=== PATIENT | male | born 2000 | race Caucasian/White ===

== ENCOUNTER 2023-10-01 00:23 | Emergency (ER) | payer OTHER, SELFPAY ==
[2023-10-01 00:40] VITALS: BP 141/95; PULSE 100; RESP 20; TEMP 36.9; O2SAT 100; BMI 29.0
--- NOTE | 2023-10-01 01:05 | ED_ITS ---
HPI - Skin/Abscess/Foreign Bdy General Chief complaint: Skin/Abscess/Foreign Body Stated complaint: rash on skin Time Seen by Provider: 10/01/23 01:05 Source: patient Mode of arrival: Ambulatory Limitations: no limitations History of Present Illness HPI narrative: Patient is an otherwise healthy 23-year-old male with a history of eczema who is here for evaluation of a rash on his face and upper chest and arms and hands. No rash in his mouth. No rash on the palms of his hand. No rash in his genitals. He states that he has been ?asleep for 3 days? who states he got up this morning and looked in the mirror noticed the rash. He does not remember seeing and over the past couple days. No recent travel. No recent antibiotics. Has not seen a [employer] in quite some time. Has not done anything for the symptoms prior to arrival. Related Data Previous Rx's Medication Instructions Recorded prednisone 20 mg tablet See Rx Instructions .Route 10/01/23 .COMPLEX #18 tabs Allergies Allergy/AdvReac Type Severity Reaction Status Date / Time No Known Drug Allergies Allergy Verified 10/01/23 01:12 Review of Systems Constitutional Constitutional: Reports system reviewed and no additional complaints, except as documented ENT Ears, Nose, Mouth, and Throat: Reports system reviewed and no additional complaints, except as documented Cardiovascular Cardiovascular: Reports system reviewed and no additional complaints, except as documented Respiratory Respiratory: Reports system reviewed and no additional complaints, except as documented Integumentary/Breasts Skin/Breast: Reports system reviewed and no additional complaints, except as documented Patient History Social History Smoking Status: Never smoker Smoking Status: Never smoker alcohol intake frequency: 0-2 drinks per day Alcohol type: beer Substance Use Type: does not use Exam Initial Vital Signs Initial Vital Signs: Vital Signs Temperature 98.5 F 10/01/23 00:40 Pulse Rate 100 H 10/01/23 00:40 Respiratory Rate 20 10/01/23 00:40 Blood Pressure 141/95 H 10/01/23 00:40 Pulse Oximetry 100 10/01/23 00:40 Oxygen Delivery Method Room Air 10/01/23 00:40 Const General: cooperative, comfortable and No ill appearing HENMT Mouth: oral mucosae normal Resp Effort & Inspection: normal respiratory effort Cardio Rate: regular rate Skin Other: Patient with dry skin. Has innumerable lesions on his upper arms and forehead and somewhat his back and upper chest. No vesicles. No surrounding erythema. Some are crusting over. Course Orders Ordered: Discontinued Medications Prednisone (Prednisone 20 Mg Tablet) 40 mg PO NOW ONE Stop: 10/01/23 01:07 Last Admin: 10/01/23 01:11 Dose: 40 mg Documented By: MIKHAIL Vital Signs Vital signs: Vital Signs - 8 hr 10/01/23 00:40 Temperature 98.5 F Pulse Rate 100 H Respiratory Rate 20 Blood Pressure 141/95 H Pulse Oximetry 100 Oxygen Delivery Method Room Air MDM - Skin/Abscess/Foreign Bdy MDM Narrative Medical decision making narrative: No new medications. No travel. No fevers. No new exposures. Does have history of eczema. His rash is not consistent with Roland Joel's, TeN, EM, other infectious source. Plan will be is to place him on steroids for the next couple days on a taper. Also advised that he follow-up with dermatology. No indication for admission to the hospital. Both he and his mother expressed understanding and agreement with plan. Discharge Plan Departure Patient Disposition: Home Clinical Impression: Eczema, Rash Instructions: DI for Rash Activity Restrictions/Additional Instructions: I do recommend that you take the steroids as directed. You can also use topical moisturizing cream. I highly recommend that you follow-up with dermatology. Return to the emergency department for new symptoms. Prescriptions: New prednisone 20 mg tablet See Rx Instructions .ROUTE .COMPLEX Qty: 18 0RF Rx Instructions: 2T PO QD for 5D then 1T PO QD for 5D then 1/2T PO QD for 5D Referrals: Steffen Astorga MD [Primary Care Provider] - Stand Alone Forms: Patient Portal/API, Work Release Note
[2023-10-01] MEDS: predniSONE 20 MG TABLET 40 MG PO (01:11)
== END 2023-10-01 01:21 | disposition home or self-care (01) ==
PROVIDERS: Emergency Provider Emergency Medicine; Family Provider Family Medicine; PCP Family Medicine
DX: L30.9 Dermatitis, unspecified (principal); R21 Rash and other nonspecific skin eruption
CPT/HCPCS: 99283

== ENCOUNTER → 2023-10-02 15:50 | Outpatient (ROUT) | payer OTHER, SELFPAY | PROVIDERS: Family Provider Family Medicine; PCP Family Medicine; Visit Provider Dermatology | DX: R21 Rash and other nonspecific skin eruption (principal) | CPT/HCPCS: 87070; 87075; 87077; 87147; 87186; 87205 ==